=== PATIENT | male | born 1950 | race Caucasian/White ===

== ENCOUNTER 2021-07-03 17:11 | Inpatient (IN) | payer OTHER ==
[~2021-07-03] VITALS: Ht 170.2 cm; Wt 60.7 kg
--- NOTE | ~2021-07-03 | EMS ---
[address] [address] EMS Patient Care Report Name: DASHA KNAPP Room #: 438-P ADM IN M.R.#: [id number] Admission: 07/04/21 Attend Phys: Byron Kolb Discharge: Date of : 52 Report #: [id number] THIS REPORT FOR: //name// Report Transmitted: 07/09/2021 08:32 EMS Care Summary [place], [place]/[facility] Incident [id number] @ 07/03/2021 16:[address] A Patient DASHA KNAPP III Male, 71 Years 1950 Patient Address [facility] [place][note 2] [address] [id number] Patient History Chronic Obstructive Pulmonary Disease (COPD),Tuberculosis, Patient Allergies No known allergies, Chief Complaint difficulty breathing Disposition Transported No Lights/[place] Dis[place] Reason Breathing Problem Transported To [facility] Narrative Dispatched to an apartment community in regards to a respiratory distress. On arrival, I saw patient sitting in a chair in his bedroom. Initial assessment revealed that patient was A&Ox4 and did not appear to be in respiratory distress. patient's chief complaint was dyspnea x 3 days. Patient stated that he has COPD and has used his inhaler. Physical assessment revealed that [address] [address] EMS Patient Care Report Name: DASHA KNAPP Room #: 438-P ADM IN M.R.#: [id number] Admission: 07/04/21 Attend Phys: Byron Kolb Discharge: Date of : 52 Report #: [id number] patient's lung sounds were slightly wheezy and appeared jaundiced. Patient was able to ambulate without assistance to our cot. Patient was seated and secured with seat belts. Patient was lifted into the ambulance. Treatment rendered was obtaining a complete set of baseline vital signs. Patient was transported to [facility] and radio report was given en route. Patient care was transferred on arrival. Initial Vitals @16:41P: 112,R: 16,BP: 118/73,Pain: 0/10,GCS: 15,CO: 3,SpO2: 95,Revised Trauma: 12, @16:39P: 116,R: 17,BP: 112/74,Pain: 0/10,GCS: 15,CO: 1,SpO2: 96,Revised Trauma: 12, Assessments @16:39MENTAL:Event Oriented,Person Oriented,Place Oriented,Time Oriented,SKIN:HEENT:Head/Face: No Abnormalities,Eyes: No Abnormalities,Neck/Airway: No Abnormalities,LUNG SOUNDS:General: No Abnormalities,Left Upper: No Abnormalities,Right Upper: No Abnormalities,Left Lower: No Abnormalities,Right Lower: No Abnormalities,ABDOMEN:General: No Abnormalities,Left Upper: No Abnormalities,Right Upper: No Abnormalities,Left Lower: No Abnormalities,Right Lower: No Abnormalities,PELVIS//GI:No Abnormalities,EXTREMITIES:Left Arm: No Abnormalities,Right Arm: No Abnormalities,Left Leg: No Abnormalities,Right Leg: No Abnormalities,PULSE:NEURO:No Abnormalities, Impression Acute Respiratory Distress (Dyspnea) Timeline 16:19,Call Received 16:19,Dispatch Notified 16:21,Dispatched 16:21,En Route 16:30,On Scene 16:31,At Patient 16:39,BP: 112/74 M,PULSE: 116,RR: 17 R,SPO2: 96 Ox,ETCO2: ,BG: ,PAIN: 0,GCS: 15, 16:41,BP: 118/73 M,PULSE: 112,RR: 16 R,SPO2: 95 Ox,ETCO2: ,BG: ,PAIN: 0,GCS: 15, 16:49,Depart Scene 17:01,At Destination 17:34,Call Closed Disclaimer v1.1 Copyright 2021 [employer] [address] [address] EMS Patient Care Report Name: DASHA KNAPP Room #: 438-P ADM IN M.R.#: [id number] Admission: 07/04/21 Attend Phys: Byron Kolb Discharge: Date of : 52 Report #: [id number] This EMS Care Summary contains data elements from the applicable legal record (which may be displayed differently). It is designed to provide pertinent information for the following purposes: continuity of care, clinical quality, and state data reporting. The complete legal record is available to ED staff and administrators of the receiving hospital in [employer]'s Patient Tracker. All data is provided "as is."
[2021-07-03 17:15] VITALS: BP 105/70
[2021-07-03 18:50] LABS: HEMATOCRIT 41.8 % (42.0-52.0); HEMOGLOBIN 14.1 gm/dL (14.0-18.0); MCH 32.3 pg (26.0-34.0); MCHC 33.7 g/dL (28.0-37.0); MCV 95.6 fL (80.0-100.0); PLATELET COUNT 174 thou/uL (150-400); RBC 4.37 mil/uL (4.50-6.00); RDW 14.9 % (10.5-14.5); WBC 17.3 thou/uL (4.0-11.0)
[2021-07-03 19:00] LABS: CALCIUM 9.6 mg/dL (8.5-10.1); CREATININE 0.8 mg/dL (0.7-1.3); POTASSIUM 3.8 mmol/L (3.5-5.1)
[2021-07-03 19:15] LABS: URINE BILIRUBIN 3+ (Negative); URINE BLOOD 2+ (Negative); URINE CLARITY SL CLOUDY; URINE COLOR BROWN; URINE GLUCOSE-RANDOM* TRACE (Negative); URINE KETONES 1+ (Negative); URINE LEUKOCYTES-REFLEX TRACE (Negative); URINE PROTEIN (DIPSTICK) 3+ (Negative); URINE SPECIFIC GRAVITY 1.025 (1.005-1.035)
[2021-07-03 19:18] LABS: ICTOTEST (BILI CONFIRMATORY) Positive (Negative); URINE NITRITE-REFLEX POSITIVE (Negative)
[2021-07-03 19:20] LABS: ALBUMIN 2.8 g/dL (3.4-5.0); DIRECT BILIRUBIN 11.7 mg/dL (<0.1-0.2); TOTAL BILIRUBIN 14.9 mg/dL (0.2-1.0); TOTAL PROTEIN 7.1 g/dL (6.4-8.2)
[2021-07-03 19:33] LABS: CASTS None Seen /LPF (None Seen); SQUAMOUS 0-3 Few /LPF (0-3); URINE RBC 3-10 Few /HPF (NONE SEEN); URINE WBC-REFLEX 0-5 Rare /HPF (0-5)
[2021-07-03 19:34] LABS: CRYSTALS None Seen /LPF (None Seen)
[2021-07-03 20:18] LABS: ABSOLUTE NEUTROPHILS 13.5 thou/uL (1.4-8.2); HYPOCHROMASIA 2+; METAMYELOCYTES 1 %
[2021-07-04] MEDS ORDERED: SPIRIVA18 MCG INH (00:12)
[2021-07-04] MEDS ORDERED: ASPIRIN EC81 M1 PO (00:12)
[2021-07-04] MEDS ORDERED: FAMOTIDINE 20 M20 MG PO (00:12)
[2021-07-04] MEDS ORDERED: DULERA 100 MCG/13 GM INH (00:12)
[2021-07-04] MEDS ORDERED: ALBUTEROL0.63 MG/3 INH (00:13)
[2021-07-04 02:58] LABS: APTT 31.6 Seconds (24.5-32.8); INR 1.4; PROTIME 14.6 Seconds (9.3-11.4)
[2021-07-04 08:50] VITALS: BP 112/76
--- NOTE | 2021-07-04 09:30 | EKG ---
[address] [address] [facility] [place] [address] ELECTROCARDIOGRAM REPORT Name: DASHA KNAPP Room #: 170-14 ADM IN M.R.#: [id number] Admission: 07/04/21 Attend Phys: Byron Kolb Discharge: Date of : 52 Report #: [id number] [facility] ED Test Date: 2021-07-04 Test Time: 08:50:42 Pat Name: DASHA KNAPP Department: Room: 170 14 Gender: M Moving Picture Producer: AYUSH : 1950 Requested By: Carlos Louis Order Number: [id number] MD: Jesus Manuel Gutierrez Measurements Intervals [place] Rate: 169 P: [place]: QRS: 50 QRSD: 93 T: 26 QT: 291 QTc: 488 Interpretive Statements Atrial fibrillation with rapid V-rate RSR' in V1 or V2, right VCD or RVH ST depression, probably rate related Baseline wander in lead(s) V1 No previous ECG available for comparison Electronically Signed On 07-04-2021 9:30:01 RETAIL MARKETING SPECIALIST by Jesus Manuel Gutierrez [email or web address] <ELECTRONICALLY SIGNED> By: Jesus Manuel Gutierrez MD, [facility] 07/04/21 0930 0850 Jesus Manuel Gutierrez MD, [facility] /EPI
--- NOTE | 2021-07-04 13:38 | NUR ---
Case opened to follow for dc planning. 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 He lives in an apt and is indep with gait and adl's. He does use a cane occassionally. He does not drive and has neighbors/friends who help him out with errands and grocery shopping. He has has cell phone on him but needs it charged. Charging assistance provided and indicates his niece Donna is his next of kin emergency contact if needed [phone]. He will let her know he is in the hospital. He also notes she would be the one to make any decisions for him if he is not able to make them for himself. He can not recall her last name and states she lives an hour away. He is being treated for obst jaundice with MRCP planned this morning;however it was put on hold due to afib. He [place] [facility] [place] and f/u care. He has an appt on 07/21/21. Will follow along. Pt will likely need a ride home at dc.
[2021-07-04 16:46] VITALS: BP 101/68
[2021-07-04 20:00] VITALS: BP 106/65
[2021-07-04 21:00] VITALS: BP 119/72
[2021-07-04 22:00] VITALS: BP 111/63
[2021-07-04 23:00] VITALS: BP 108/62
[2021-07-05] VITALS (11 sets, daily range): BP systolic 99–127; BP diastolic 54–69
--- NOTE | 2021-07-05 03:44 | NUR ---
ADMITTED THIS PATIENT FROM PACU AROUND 2000H.ADMISSION HISTORY COMPLETED.ASSESSMENT DONE CHARTED.MEDS GIVEN PER AUG.ALL NEEDS ATTENDED.TO CONTINOUSLY MONITOR.
[2021-07-05 05:28] LABS: HEMATOCRIT 37.3 % (42.0-52.0); HEMOGLOBIN 12.5 gm/dL (14.0-18.0); MCH 32.1 pg (26.0-34.0); MCHC 33.5 g/dL (28.0-37.0); MCV 95.7 fL (80.0-100.0); RBC 3.9 mil/uL (4.50-6.00); RDW 14.8 % (10.5-14.5); WBC 10.7 thou/uL (4.0-11.0)
[2021-07-05 05:54] LABS: ALBUMIN 2.2 g/dL (3.4-5.0); DIRECT BILIRUBIN 4.5 mg/dL (<0.1-0.2); TOTAL PROTEIN 6.2 g/dL (6.4-8.2)
[2021-07-05 06:02] LABS: TOTAL BILIRUBIN 5.7 mg/dL (0.2-1.0)
[2021-07-06 01:05] LABS: CA 125 38.2 U/mL (Not Estab.)
[2021-07-06 03:45] VITALS: BP 107/66
--- NOTE | 2021-07-06 05:20 | NUR ---
NURSING NOTE: SHIFT SUMMARY: PT ALERT AND ORIENTED X4; MOVES ALL EXTREMITIES AND FOLLOWS COMMANDS. DENIES PAIN THIS SHIFT. ALL VS AND ASSESSMENTS CHARTED. CURRENTLY RESTING WITH EYES CLOSED, RESP EVEN AND NON LABORED. NO DISTRESS NOTED AT THIS TIME.
[2021-07-06 07:00] VITALS: BP 104/61
--- NOTE | 2021-07-06 10:49 | 2DMMODE ---
[facility] [address] [place] [address] 2 D/M-MODE ECHOCARDIOGRAM Name: DASHA KNAPP Room #: 212-P ADM IN M.R.#: [id number] Admission: 07/04/21 Attend Phys: Byron Kolb Discharge: Date of : 52 Report #: [id number] THIS REPORT FOR: cc: FAM - No family physician/PCP FAM - No family physician/PCP Ketan Gould MD ~ APPROVED REPORT Study performed: 07/05/2021 11:20:05 EXAM: Comprehensive 2D, Doppler, and color-flow Echocardiogram Patient Location: Bedside Room #: 212 Status: on-call BSA: 1.57 HR: 78 bpm BP: 127/69 mmHg Rhythm: Atrial Fibrillation Other Information Study Quality: Good Indications Atrial Fibrillation CAD Chest Pain Hypertension/HDD 2D Dimensions IVSd: 10.18 (7-11mm) LVOT Diam: 20.57 (18-24mm) LVDd: 41.86 mm PWd: 9.02 (7-11mm) Ascending Ao: 36.10 (22-36mm) LVDs: 27.55 (25-40mm) Left Atrium: 37.81 (27-40mm) Aortic Root: 34.15 mm Aortic Valve AoV Peak Gene.: 0.97 m/s AO Peak Gr.: 3.80 mmHg LVOT Max P.58 mmHg LVOT Max V: 0.80 m/s ABENA Vmax: 2.73 cm2 Pulmonary Valve PV Peak Gene.: 0.70 m/s PV Peak Gr.: 1.98 mmHg [facility] [address] [place] [address] 2 D/M-MODE ECHOCARDIOGRAM Name: DASHA KNAPP Room #: 212-P ADM IN M.R.#: [id number] Admission: 07/04/21 Attend Phys: Byron Owen Discharge: Date of : 52 Report #: [id number] Tricuspid Valve TR Peak Gene.: 2.65 m/s TR Peak Gr.: 28.01 mmHg PA Pressure: 37.00 mmHg Left Ventricle The left ventricle is normal size. There is normal LV segmental wall motion. Mild concentric left ventricular hypertrophy. The left ventricular systolic function is normal. The left ventricular ejection fraction is within the normal range. LVEF is 55-60%. This study is not technically sufficient to allow evaluation of the LV diastolic function due to atrial fibrillation. Right Ventricle The right ventricle is normal size. The right ventricular systolic function is normal. Atria Left atrium is dilated. Right atrium is dilated. Aortic Valve The aortic valve is normal in structure. No aortic regurgitation is present. There is no aortic valvular stenosis. Mitral Valve The mitral valve is normal in structure. Mitral valve leaflets appear myxomatous. Mild mitral regurgitation. No evidence of mitral valve stenosis. There is mild mitral valve prolapse. Tricuspid Valve The tricuspid valve is normal in structure. There is mild tricuspid regurgitation. Estimated PAP 37 mmHg. There is mild pulmonary hypertension. Pulmonic Valve The pulmonary valve is normal in structure. Trace pulmonic regurgitation. Great Vessels The aortic root is normal in size. IVC is dilated and collapses <50% with inspiration. Pericardium There is no pericardial effusion. [facility] [address] [place] [address] 2 D/M-MODE ECHOCARDIOGRAM Name: DASHA KNAPP Room #: 212-P ADM IN M.R.#: [id number] Admission: 07/04/21 Attend Phys: Byron Owen Discharge: Date of : 52 Report #: [id number] <Conclusion> The left ventricle is normal size. LVEF is 55-60%. The right ventricle is normal size. Left atrium is dilated. Right atrium is dilated. The aortic valve is normal in structure. The mitral valve is normal in structure. Mitral valve leaflets appear myxomatous. Mild mitral regurgitation. There is mild mitral valve prolapse. The tricuspid valve is normal in structure. There is mild tricuspid regurgitation. Estimated PAP 37 mmHg. There is mild pulmonary hypertension. The pulmonary valve is normal in structure. Trace pulmonic regurgitation. The aortic root is normal in size. There is no pericardial effusion. <ELECTRONICALLY SIGNED> By: Ketan Gould MD 07/06/21 1049 1049 1049 Ketan Gould MD /INF
[2021-07-06 12:00] VITALS: BP 132/69
[2021-07-06 15:00] VITALS: BP 122/73
[2021-07-06 20:00] VITALS: BP 127/65
[2021-07-07 04:01] LABS: HEMATOCRIT 33.6 % (42.0-52.0); HEMOGLOBIN 11.3 gm/dL (14.0-18.0); MCH 32.1 pg (26.0-34.0); MCHC 33.7 g/dL (28.0-37.0); MCV 95.3 fL (80.0-100.0); RBC 3.53 mil/uL (4.50-6.00); RDW 15.2 % (10.5-14.5)
[2021-07-07 04:04] LABS: CALCIUM 7.6 mg/dL (8.5-10.1); CREATININE 0.6 mg/dL (0.7-1.3); MAGNESIUM 1.8 mg/dL (1.8-2.4); POTASSIUM 3.3 mmol/L (3.5-5.1); TOTAL PROTEIN 5.3 g/dL (6.4-8.2)
[2021-07-07 04:09] LABS: TOTAL BILIRUBIN 3.4 mg/dL (0.2-1.0)
[2021-07-07 05:21] VITALS: BP 117/84
--- NOTE | 2021-07-07 06:51 | NUR ---
PT ALERT AND ORIENTED X4; MOVES ALL EXTREMITIES AND FOLLOWS COMMANDS. DENIES PAIN. VOIDS PER URINAL. RESTING WITH EYES CLOSED MOST OF SHIFT. NPO SINCE MIDNIGHT FOR ERCP TODAY. DID STATE THAT HE FEELS HE IS "URINATING TOO MUCH AND SOMEONE SHOULD HAVE TOLD HIM". CHECKED HIS MEDICATIONS FOR DIURETICS/SAW NONE. WAS ABLE TO EXPLAIN DIFFERENT REASONS FOR INCREASED URINATION AND THEN HEARD NO MORE ABOUT IT THE REST OF SHIFT. ALL VS AND ASSESSMENTS CHARTED. RESTING WITH EYES CLOSED/NO DISTRESS AT THIS TIME.
[2021-07-07 08:00] VITALS: BP 132/71
[2021-07-07 11:58] VITALS: BP 143/79
[2021-07-07 14:07] LABS: CEA 2.9 ng/mL (0.0-4.7)
[2021-07-07 16:55] VITALS: BP 139/66
[2021-07-07 21:02] LABS: % SATURATION 50 % (20-39); IRON 83 ug/dL (65-175); TIBC 167 ug/dL (250-450)
[2021-07-07 21:20] VITALS: BP 157/88
[2021-07-07 21:33] LABS: FOLIC ACID 2.9 ng/mL (8.6-58.9)
[2021-07-08 05:47] LABS: OBSERVED RETIC COUNT 0.55 % (0.6-2.6)
--- NOTE | 2021-07-08 05:52 | NUR ---
RECEIVED CARE OF THIS PATIENT AT 2230 FROM 2N VIA W/C ACCOMPANIED BY 2N PERSONADRIANE. PATIENT ALERT AND ORIENTED X4. UP WITH SBA. USES URINAL, HAS A HARD TIME GOING MOST OF THIS TIME. WAS GIVEN PAIN MED AND WENT TO SLEEP. HAD NO TROUBLE URIENATING AFTERWARD. ANXIOUS ABOUT HIS URINE PROBLEM. IV PATENT IN RFA WITH FLUIDS INFUSING. SLEPT OFF AND ON DURING NIGHT.
[2021-07-08 07:30] VITALS: BP 136/96
--- NOTE | 2021-07-08 10:14 | NUR ---
GOES BY "ALECIA". A/OX 4. ROOM AIR. NON PRODUCTIVE COUGH. USES CANE AT HOME, AD [place] IN HOSPITAL, LEFT HAND PIV WITH D5W 1/2 NS @ 125 INFUSING. USES URINAL @ BEDSIDE. SR ON TELE. NPO @ MIDNIGHT FOR STRESS TEST TOMORROW.
[2021-07-08 11:09] LABS: ALBUMIN 2.5 g/dL (3.4-5.0); CALCIUM 8.7 mg/dL (8.5-10.1); CREATININE 0.8 mg/dL (0.7-1.3); POTASSIUM 3.9 mmol/L (3.5-5.1); TOTAL BILIRUBIN 4.1 mg/dL (0.2-1.0); TOTAL PROTEIN 6.5 g/dL (6.4-8.2)
[2021-07-08 11:20] VITALS: BP 147/83
[2021-07-08 15:23] VITALS: BP 147/87
[2021-07-08 19:59] VITALS: BP 145/84
[2021-07-09 05:32] VITALS: BP 139/64
--- NOTE | 2021-07-09 06:00 | NUR ---
Pt. rested quietly at intervals during the night when checked on during frequent rounds. He did c/o rectal pain from his hemmorrhoids and wanted some Preperation-H. Call placed to [facility] (see cpoe) for orders. Pain med given (see emar) with relief noted. No c/o shortness of air.
[2021-07-09 07:08] LABS: HEP B SURFACE Ab(ANTI-HBS Non Reactive (()); HEPATITIS B SURFACE AG Negative (Negative)
--- NOTE | 2021-07-09 08:49 | P ---
[facility] [place] [address] [place] [address] PROCEDURE REPORT Name: DASHA KNAPP Room #: 438-P ADM IN M.R.#: [id number] Admission: 07/04/21 Attend Phys: Byron Kolb Discharge: Date of : 52 Report #: [id number] THIS REPORT FOR: cc: RAND - No family physician/PCP FAM - No family physician/PCP Armando Suarez MD ~ cc: Byron Kolb MD DATE OF SERVICE: 07/04/2021 PROCEDURE PERFORMED: ERCP. HISTORY OF PRESENT ILLNESS: The patient is a 71-year-old male who was admitted with decreased appetite, weight loss, jaundice intermittent nausea and vomiting. The patient's white count on admission yesterday was 17.3. His LFTs showed a total bilirubin of 14.9, AST 249, ALT 336, alkaline phosphatase 482, was noted to have an elevated lipase of 2695 as well. He was placed on IV Zosyn and he underwent initially an ultrasound of the abdomen, which showed prominent dilation of the intra and extrahepatic ducts, a cystic process measuring 6 cm was noted in the pancreatic head area concerning for an underlying cystic mass. Gallbladder sludge without cholelithiasis or gallbladder wall thickening was noted. The patient then underwent a CT scan of the abdomen and pelvis. This showed also marked abnormal dilation of the intra and extrahepatic ducts. Two areas of density in the distal common bile duct, one measuring 9.7 mm, the other measuring 5 mm. These are not definitively calcified and clinical correlation is recommended whether these represent small stones and choledocholithiasis causing obstruction versus soft tissue lesions in the distal common bile duct. Plan is for ERCP. DESCRIPTION OF PROCEDURE: The risks and benefits of the procedure were explained to the patient, those risks including but not limited to bleeding, perforation and the risk of sedation as well as potential risk for post-ERCP pancreatitis. He understood these risks and gave informed consent. The procedure was performed in the OR under general anesthesia. Again, the patient is already on IV Zosyn. He was also given 50 mg indomethacin rectal suppository. Next, using a standard Olympus side-viewing ERCP scope, the scope was placed in the patient's mouth and advanced under direct vision through the esophagus, stomach and into the second portion of the duodenum. At this point, the major papilla was identified. It was enlarged in general. There was no mucosal abnormality. There appears to be a small portion of a diverticulum on the superior rim of the ampulla, but again the ampulla was enlarged. Next, using a Delmer-Cook 0.025 dome tipped sphincterotome catheter, I tried multiple times to cannulate the common bile duct. The tip of the catheter would sit nicely inside the opening of the major papilla. I tried multiple different angles a few times. I was able to get an image of the pancreatic duct with contrast, which appeared mildly dilated. I was never able to obtain a [facility] [address] [place] [address] PROCEDURE REPORT Name: DASHA KNAPP Room #: 438-P [facility] IN M.R.#: [id number] Admission: 07/04/21 Attend Phys: Byron Kolb Discharge: Date of : 52 Report #: [id number] cholangiogram. Dye would continue to spill out. I tried multiple times. Also tried several different times passing a guidewire both in the long and short position as well. At this point, this was unsuccessful. The scope was then withdrawn and the procedure was terminated. The patient tolerated the procedure well. IMPRESSION: 1. Abnormal appearing of the major papilla, ampulla, enlarged in general, no mucosal abnormalities. 2. Despite multiple attempts, unable to cannulate the common bile duct or even get a cholangiogram, suspect there may be a tumor in this area, but cannot rule out a possibility of an obstructive stone. RECOMMENDATIONS: 1. Continue IV antibiotics. 2. We will start clear liquids as tolerated. 3. Continue to monitor liver function test and lipase. 4. I spoke with Dr. Jacobson who is interventional radiologist if the patient's white count becomes worse or febrile over the weekend, may need to consider a percutaneous drainage of the bile duct at that point. Otherwise, may plan on this on Wednesday. We will also send off for tumor markers at this time. Thank you for allowing me to participate in his care. <ELECTRONICALLY SIGNED> By: Armando Suarez MD 07/09/21 0849 1655 2149 Armando Suarez MD /nt
[2021-07-09] MEDS ORDERED: AUGMENTIN 875-1 EACH PO (16:03)
[2021-07-09] MEDS ORDERED: CARDIZEM CD 18180 M3 PO (16:04)
[2021-07-09] MEDS ORDERED: FOLIC ACID1 MG PO (16:04)
--- NOTE | 2021-07-09 16:43 | NUR ---
Patient to dc home. He is happy to be discharged. Cab vouched for home. Retrieved some clothes to give patient as he reports he came in emergently. no further needs
== END 2021-07-09 17:45 | disposition home or self-care (01) | DRG 871 ==
LOC: ER 17:11 → 4S 07-04 00:19 → EROBS 07-04 00:19 → 2N 07-04 00:19 → EROBS 07-04 08:23 → 2N 07-04 15:20 → 4S 07-07 22:29
PROVIDERS: Internal Medicine; Nurse Practitioner; Nurse Practitioner Family; Specialist; Student in an Organized Health Care Education/Training Program; ADMIT Hospitalist; ATTEND Hospitalist
PROC: 0FJD8ZZ Inspection of Pancreatic Duct, Via Natural or Artificial Opening Endoscopic (ICD-10-PCS; principal; 2021-07-04)
DX: A41.9 Sepsis, unspecified organism (principal); K85.90 Acute pancreatitis without necrosis or infection, unspecified; E43 Unspecified severe protein-calorie malnutrition; K80.31 Calculus of bile duct with cholangitis, unspecified, with obstruction; N39.0 Urinary tract infection, site not specified; C24.0 Malignant neoplasm of extrahepatic bile duct; D69.6 Thrombocytopenia, unspecified; D64.9 Anemia, unspecified; Z20.822 Contact with and (suspected) exposure to COVID-19; N40.1 Benign prostatic hyperplasia with lower urinary tract symptoms; R63.4 Abnormal weight loss; J98.4 Other disorders of lung; R74.01 Elevation of levels of liver transaminase levels; J43.9 Emphysema, unspecified; I48.91 Unspecified atrial fibrillation; R53.81 Other malaise; Z90.49 Acquired absence of other specified parts of digestive tract; Z91.041 Radiographic dye allergy status; Z82.49 Family history of ischemic heart disease and other diseases of the circulatory system; Z80.8 Family history of malignant neoplasm of other organs or systems; Z68.21 Body mass index [BMI] 21.0-21.9, adult; Z86.11 Personal history of tuberculosis
CPT/HCPCS: 10081; 10100; 62110; 62900; 70005